=== PATIENT | male | born 1995 | race Caucasian/White ===

== ENCOUNTER 2024-01-15 20:30 | Emergency (ER) | payer MEDICAID, SELFPAY ==
[2024-01-15 20:37] VITALS: BP 150/79; PULSE 106; TEMP 37.3; O2SAT 97; BMI 25.8
--- NOTE | 2024-01-15 20:50 | CT_ITS ---
The [address] [address] Patient Name: KIERRA JONES MRN: [id number] date: 1995 Sex: M Assigned Patient Location: ER Current Patient Location: .[facility] Accession/Order Number: [id number] Exam Date: 01/15/2024 20:56 Report Date: 01/15/2024 21:21 At the request of: LAXMI GANN Procedure: CT cervical spine wo con EXAM: CT head/brain wo con, CT cervical spine wo con HISTORY: head injury COMPARISON: None. TECHNIQUE: Axial CT scans through the head and cervical spine were obtained without IV contrast administration. Dose reduction techniques were achieved by using: automated exposure control and/or adjustment of mA and /or kV according to patient size and/or use of iterative reconstruction technique. CT BRAIN FINDINGS: There is no evidence of acute intracranial hemorrhage or abnormal extra-axial fluid collection. No mass effect or midline shift is seen. There is no evidence of large acute territorial infarction. There is no hydrocephalus. No definite acute fracture is identified. Soft tissues are unremarkable. The visualized orbits show no abnormality. The visualized paranasal sinuses show no air-fluid level. Mastoid air cells are clear. CT/CT cervical spine wo con IMPRESSION: No CT evidence of acute intracranial abnormality. CT CERVICAL SPINE FINDINGS: No acute fracture or posttraumatic malalignment is seen. The dens and lateral masses of C1 are symmetric. There is straightening of the normal cervical lordotic curvature, may be related to positioning or muscle spasm. There is mild anterior marginal spurring and right-sided uncovertebral joint hypertrophy at the C3-4 level, resulting in mild right neural foraminal narrowing. No significant spinal canal narrowing at any level. The prevertebral soft tissue space appears normal. Visualized lung apices are clear. IMPRESSION: No visualized acute cervical spine abnormality. Electronically authenticated by: EVE MATOS Date: 01/15/2024 21:21
--- NOTE | 2024-01-15 20:50 | CT_ITS ---
The [address] [address] Patient Name: KIERRA JONES MRN: [id number] date: 1995 Sex: M Assigned Patient Location: ER Current Patient Location: .[facility] Accession/Order Number: [id number] Exam Date: 01/15/2024 20:56 Report Date: 01/15/2024 21:21 At the request of: LAXMI GANN Procedure: CT head/brain wo con EXAM: CT head/brain wo con, CT cervical spine wo con HISTORY: head injury COMPARISON: None. TECHNIQUE: Axial CT scans through the head and cervical spine were obtained without IV contrast administration. Dose reduction techniques were achieved by using: automated exposure control and/or adjustment of mA and /or kV according to patient size and/or use of iterative reconstruction technique. CT BRAIN FINDINGS: There is no evidence of acute intracranial hemorrhage or abnormal extra-axial fluid collection. No mass effect or midline shift is seen. There is no evidence of large acute territorial infarction. There is no hydrocephalus. No definite acute fracture is identified. Soft tissues are unremarkable. The visualized orbits show no abnormality. The visualized paranasal sinuses show no air-fluid level. Mastoid air cells are clear. CT/CT head/brain wo con IMPRESSION: No CT evidence of acute intracranial abnormality. CT CERVICAL SPINE FINDINGS: No acute fracture or posttraumatic malalignment is seen. The dens and lateral masses of C1 are symmetric. There is straightening of the normal cervical lordotic curvature, may be related to positioning or muscle spasm. There is mild anterior marginal spurring and right-sided uncovertebral joint hypertrophy at the C3-4 level, resulting in mild right neural foraminal narrowing. No significant spinal canal narrowing at any level. The prevertebral soft tissue space appears normal. Visualized lung apices are clear. IMPRESSION: No visualized acute cervical spine abnormality. Electronically authenticated by: EVE MATOS Date: 01/15/2024 21:21
--- NOTE | 2024-01-15 21:24 | ED.HEATRA1 ---
HPI HPI - Head Injury General Chief complaint: Head Injury Stated complaint: HEAD INJURY Time Seen by Provider: 01/15/24 20:49 Source: patient Mode of arrival: Wheelchair Limitations: no limitations History of Present Illness HPI Narrative: patient cut down a tree and it fell striking him in the head. He did not loose consciousness. He complains of a headache but denies dizziness, nausea or difficulty walking. No weakness of the upper or lower extremities Related Data Home Medications ?Medication ?Instructions ?Recorded ?Confirmed buprenorphine HCl 8 mg sublingual 8 mg sublingual DAILY 01/15/24 01/15/24 tablet clonazepam 0.5 mg tablet 0.25 mg PO BID 01/15/24 01/15/24 clonidine HCl 0.1 mg tablet 0.1 mg PO BID 01/15/24 01/15/24 esomeprazole magnesium 40 mg 40 mg PO DAILY 01/15/24 01/15/24 capsule,delayed release (Nexium) famotidine 40 mg tablet (Pepcid) 40 mg PO DAILY 01/15/24 01/15/24 ketorolac .ROUTE 01/15/24 mirtazapine 30 mg tablet (Remeron) 30 mg PO DAILY 01/15/24 01/15/24 quetiapine 200 mg tablet (Seroquel) 200 mg PO TID 01/15/24 01/15/24 Allergies Allergy/AdvReac Type Severity Reaction Status Date / Time No Known Drug Allergies Allergy Verified 01/15/24 20:43 Opioid HPI Opioid Management Most Recent Pain and Opioid Data: No Data to Display Review of Systems ROS Status of ROS 10 or more systems reviewed and unremarkable except as noted in history and below Exam Constitutional Vital Signs, click to edit/add: Last Vital Signs Temp 99.1 F 01/15/24 20:37 Pulse 106 H 01/15/24 20:37 Resp 20 01/15/24 20:37 BP 150/79 H 01/15/24 20:37 Pulse Ox 97 01/15/24 20:37 O2 Del Method Room Air 01/15/24 20:37 Common normals: no apparent distress, average body habitus, oriented x3, no limitations, healthy appearing, alert and well nourished [facility] Face and sinus images: 1. linear abrasion Eye Common normals: PERRL, EOMs intact bilaterally and conjunctivae normal Neck & C-Spine Common normals: full ROM Respiratory Common normals: normal respiratory effort, no retractions, no use of accessory muscles and clear to auscultation bilaterally Cardio Common normals: regular rate, regular rhythm, S1 normal heart sound and S2 normal heart sound GI Common normals: Normal to inspection, nondistended, normoactive bowel sounds present, soft to palpation and non-tender Extremity Common normals: normal to inspection and full ROM Neuro Common normals: oriented x3, CN's II-XII intact bilaterally, moves all extremities and no focal motor deficits Psych Appearance: grossly normal Course Vital Signs Vital signs: Vital Signs Temperature 99.1 F 01/15/24 20:37 Pulse Rate 106 H 01/15/24 20:37 Respiratory Rate 20 01/15/24 20:37 Blood Pressure 150/79 H 01/15/24 20:37 Pulse Oximetry 97 01/15/24 20:37 Oxygen Delivery Method Room Air 01/15/24 20:37 Temperature 99.1 F 01/15/24 20:37 Pulse Rate 106 H 01/15/24 20:37 Respiratory Rate 20 01/15/24 20:37 Blood Pressure 150/79 H 01/15/24 20:37 Pulse Oximetry 97 01/15/24 20:37 Oxygen Delivery Method Room Air 01/15/24 20:37 MDM - Head Injury MDM Narrative Medical decision making narrative: patient cut down a tree and it fell striking him on his scalp and he sustained a minor abrasion . Presents because he has a headache. No neck pain. no active bleeding or swelling. Remaining exam neg and he has no Neuro symptoms. CT brain and C-spine neg. Patient did not want the lac repaired and his tetanus is UTD. Discharged home in stable condition Imaging Data CT scan - head: Radiologist's impression: ITS Impressions Cervical Spine CT 01/15/24 20:50 IMPRESSION: No CT evidence of acute intracranial abnormality. CT CERVICAL SPINE FINDINGS: No acute fracture or posttraumatic malalignment is seen. The dens and lateral masses of C1 are symmetric. There is straightening of the normal cervical lordotic curvature, may be related to positioning or muscle spasm. There is mild anterior marginal spurring and right-sided uncovertebral joint hypertrophy at the C3-4 level, resulting in mild right neural foraminal narrowing. No significant spinal canal narrowing at any level. The prevertebral soft tissue space appears normal. Visualized lung apices are clear. IMPRESSION: No visualized acute cervical spine abnormality. Electronically authenticated by: [employer] Date: 01/15/2024 21:[address] 01/15/24 20:50 IMPRESSION: No CT evidence of acute intracranial abnormality. CT CERVICAL SPINE FINDINGS: No acute fracture or posttraumatic malalignment is seen. The dens and lateral masses of C1 are symmetric. There is straightening of the normal cervical lordotic curvature, may be related to positioning or muscle spasm. There is mild anterior marginal spurring and right-sided uncovertebral joint hypertrophy at the C3-4 level, resulting in mild right neural foraminal narrowing. No significant spinal canal narrowing at any level. The prevertebral soft tissue space appears normal. Visualized lung apices are clear. IMPRESSION: No visualized acute cervical spine abnormality. Electronically authenticated by: [employer] Date: 01/15/2024 21:21 Discharge Plan Discharge Stand Alone Forms: Portal Instructions Chief Complaint: Head Injury Clinical Impression: Closed head injury, Abrasion of scalp Patient Disposition: Home, Self-Care Prescriptions / Home Meds: No Action clonazepam 0.5 mg tablet 0.25 mg PO BID quetiapine [Seroquel] 200 mg tablet 200 mg PO TID buprenorphine HCl 8 mg tablet, sublingual 8 mg sublingual DAILY mirtazapine [Remeron] 30 mg tablet 30 mg PO DAILY clonidine HCl 0.1 mg tablet 0.1 mg PO BID esomeprazole magnesium [Nexium] 40 mg capsule,delayed release(DR/EC) 40 mg PO DAILY famotidine [Pepcid] 40 mg tablet 40 mg PO DAILY ketorolac [Toradol] .ROUTE Print Language: Thai Instructions: Head Injury (ED), Abrasion (ED) Additional Instructions: follow up with your doctor for recheck of your wound in 3-4 days Referrals: JEVON JIMENEZ [Primary Care Provider] - 1 week
[2024-01-15] MEDS: ACETAMINOPHEN 500 MG TABLET 1000 MG PO (21:43)
== END 2024-01-15 21:54 | disposition home or self-care (01) ==
PROVIDERS: Emergency Provider Internal Medicine; PCP Nurse Practitioner
DX: S09.8XXA Other specified injuries of head, initial encounter (principal); S00.01XA Abrasion of scalp, initial encounter; W20.8XXA Other cause of strike by thrown, projected or falling object, initial encounter
CPT/HCPCS: 70450; 72125; 99284